=== PATIENT | male | born 1950 | race Caucasian/White ===

== ENCOUNTER 2016-12-25 05:43 | Inpatient (IN) | payer OTHER, MEDICAID, MEDICARE ==
[~2016-12-25] VITALS: Ht 180.3 cm; Wt 105.7 kg
[~2016-12-25 05:43] MED LIST: AMLO5 PO; ARIP1TAB13 PO; CLON.5 PO; PANT20 PO; SERT50 PO; TRAZ50TA78 PO
[2016-12-25 05:47] VITALS: BP 131/93; PULSE 110; RESP 15; TEMP 98.7; O2SAT 95
[2016-12-25] MEDS ORDERED: SERT25TA83 PO ×2 (06:27→11:16)
[2016-12-25] MEDS ORDERED: CLON0.5T PO (06:27)
[2016-12-25] MEDS ORDERED: ABIL15TA2 PO (06:27)
[2016-12-25 06:28] LABS: AUTOMATED NEUTROPHIL # 9.4 TH/MM3 (1.8-7.7); BASOPHIL # 0.1 TH/MM3 (0-0.2); BASOPHIL % 0.9 % (0.0-2.0); EOSINOPHIL # 0.1 TH/MM3 (0-0.4); EOSINOPHIL % 1.2 % (0.0-4.0); HEMATOCRIT 46.5 % (39.0-51.0); HEMO FLAGS DIFF FINAL; LYMPH % 11.7 % (9.0-44.0); LYMPHOCYTE # 1.4 TH/MM3 (1.0-4.8); MEAN CELL VOLUME 85.9 FL (80.0-100.0); MEAN CORPUSCULAR HEMOGLOBIN 29.5 PG (27.0-34.0); MEAN CORPUSCULAR HGB CONC 34.3 % (32.0-36.0); MONO % 6.9 % (0.0-8.0); NEUT % 79.3 % (16.0-70.0); PLATELET COUNT 292 TH/MM3 (150-450); RED BLOOD COUNT 5.41 MIL/MM3 (4.50-5.90); WHITE BLOOD COUNT 11.9 TH/MM3 (4.0-11.0)
[2016-12-25 06:45] LABS: BICARBONATE 23.4 MEQ/L (21.0-32.0); POTASSIUM 4.2 MEQ/L (3.5-5.1)
--- NOTE | 2016-12-25 06:45 | PD ---
HPI Chief Complaint: Psychiatric Symptoms Time Seen by Provider: 06:45 Travel History International Travel<30 days: No Contact w/Intl Traveler<30days: No Traveled to known affect area: No History of Present Illness HPI 66-year-old male with history of, depression, hypertension, presents to emergency department today voluntarily for psychiatric evaluation. Patient states that he has been increasingly depressed. He is having thoughts of suicide. He was advised by psychiatry when this happened last year at July happened again to [facility] department. This is why he is here. States that his plan would be to overdose however he does not want to do this. States that he typically does not drink alcohol but has been this week. Denies any acute medical needs at this time. PFSH Past Medical History Bipolar Disorder: Yes Anxiety: Yes Depression: Yes Cancer: No Cardiovascular Problems: Yes (HTN) Diabetes: No Endocrine: No Genitourinary: Yes Headaches: Yes Hepatitis: Yes (HEPATITIS C) Hypertension: Yes Musculoskeletal: No Neurologic: Yes Psychiatric: Yes Reproductive: No Respiratory: No Seizures: No Tetanus Vaccination: Unknown Influenza Vaccination: Yes Past Surgical History Surgical History: No Previous Surgery Other Surgery: No Social History Alcohol Use: Yes (RARE) Tobacco Use: No Substance Use: No Allergies-Medications (Allergen,Severity, Reaction): Coded Allergies: No Known Allergies (Unverified , 12/25/16) Reported Meds & Prescriptions Reported Meds & Active Scripts Active Reported Clonazepam 0.5 Mg Tab 0.5 Mg PO BID Abilify (Aripiprazole) 15 Mg Tab 15 Mg PO DAILY Sertraline (Sertraline HCl) 25 Mg Tab 25 Mg PO BID Review of Systems Except as stated in HPI: all other systems reviewed are Neg Physical Exam Narrative GENERAL: Well-nourished male patient, ambulatory and in no acute distress SKIN: Focused skin assessment warm/dry. HEAD: Atraumatic. Normocephalic. EYES: Pupils equal and round. No scleral icterus. No injection or drainage. ENT: No nasal bleeding or discharge. Mucous membranes pink and moist. NECK: Trachea midline. No JVD. CARDIOVASCULAR: Regular rate and rhythm. No murmur appreciated. RESPIRATORY: No accessory muscle use. Clear to auscultation. Breath sounds equal bilaterally. GASTROINTESTINAL: Abdomen soft, non-tender, nondistended. Hepatic and splenic margins not palpable. MUSCULOSKELETAL: No obvious deformities. No clubbing. No cyanosis. No edema. NEUROLOGICAL: Awake and alert. No obvious cranial nerve deficits. Motor grossly within normal limits. Normal speech. PSYCHIATRIC: Depressed mood Data Data Last Documented VS Vital Signs Date Time Temp Pulse Resp B/P Pulse Ox O2 Delivery O2 Flow Rate FiO2 12/25/16 05:47 98.7 110 15 131/93 95 Room Air Orders Complete Blood Count With Diff (12/25/16 06:08) Basic Metabolic Panel (Bmp) (12/25/16 06:08) Psych Screen (12/25/16 06:08) Drug Screen, Random Urine (12/25/16 06:08) Alcohol (Ethanol) (12/25/16 06:08) Urinalysis - C+S If Indicated (12/25/16 06:08) Labs Laboratory Tests Test 12/25/16 06:15 White Blood Count 11.9 TH/MM3 Red Blood Count 5.41 MIL/MM3 Hemoglobin 16.0 GM/DL Hematocrit 46.5 % Mean Corpuscular Volume 85.9 FL Mean Corpuscular Hemoglobin 29.5 PG Mean Corpuscular Hemoglobin 34.3 % Concent Red Cell Distribution Width 14.0 % Platelet Count 292 TH/MM3 Mean Platelet Volume 7.6 FL Neutrophils (%) (Auto) 79.3 % Lymphocytes (%) (Auto) 11.7 % Monocytes (%) (Auto) 6.9 % Eosinophils (%) (Auto) 1.2 % Basophils (%) (Auto) 0.9 % Neutrophils # (Auto) 9.4 TH/MM3 Lymphocytes # (Auto) 1.4 TH/MM3 Monocytes # (Auto) 0.8 TH/MM3 Eosinophils # (Auto) 0.1 TH/MM3 Basophils # (Auto) 0.1 TH/MM3 CBC Comment DIFF FINAL Differential Comment MDM Medical Decision Making Medical Screen Exam Complete: Yes Emergency Medical Condition: Yes Medical Record Reviewed: Yes Differential Diagnosis Mood disorder versus personality disorder versus adjustment reaction disorder Narrative Course 66-year-old male presents to the emergency department voluntarily for psychiatric evaluation. Patient appears without distress. He is seeking help for his depression. Labs are ordered. 0700 report is given to ISABELA Soni. She will assume care at this time. Condition: Stable Nga Martinez MADHU December 25, 2016 06:45
[2016-12-25] MEDS ORDERED: LORazepam 1 MG TAB PO ONE (07:00)
[2016-12-25 07:07] LABS: BLOOD, URINE MOD (NEG); COMMENT (UR) CULT NOT INDICATED; CULTURE IF INDICATED CULT NOT INDICATED; GLUCOSE,URINE NEG (NEG); GRANULAR CAST, URINE 25 /lpf; HYALINE CAST, URINE 29 /lpf (RARE); KETONE, URINE NEG (NEG); MUCUS URINE FEW /lpf (OCC); NITRITE,URINE NEG (NEG); PH, URINE 5.5 (5.0-8.5); URINE COLOR YELLOW (YELLW/STRAW)
--- NOTE | 2016-12-25 07:14 | PD ---
Physical Exam Date Seen by Provider: December 25, 2016 Time Seen by Provider: 07:14 Narrative I was asked to medically clear this patient for psych screen once labs are back. Please refer to Nicola Martinez's note for full details of ER visit. Data Data Last Documented VS Vital Signs Date Time Temp Pulse Resp B/P Pulse Ox O2 Delivery O2 Flow Rate FiO2 12/25/16 05:47 98.7 110 15 131/93 95 Room Air Orders Complete Blood Count With Diff (12/25/16 06:08) Basic Metabolic Panel (Bmp) (12/25/16 06:08) Psych Screen (12/25/16 06:08) Drug Screen, Random Urine (12/25/16 06:08) Alcohol (Ethanol) (12/25/16 06:08) Urinalysis - C+S If Indicated (12/25/16 06:08) Lorazepam (Ativan) (12/25/16 07:00) Diet Heart Healthy (12/25/16 Breakfast) Labs Laboratory Tests Test 12/25/16 06:15 White Blood Count 11.9 TH/MM3 Red Blood Count 5.41 MIL/MM3 Hemoglobin 16.0 GM/DL Hematocrit 46.5 % Mean Corpuscular Volume 85.9 FL Mean Corpuscular Hemoglobin 29.5 PG Mean Corpuscular Hemoglobin 34.3 % Concent Red Cell Distribution Width 14.0 % Platelet Count 292 TH/MM3 Mean Platelet Volume 7.6 FL Neutrophils (%) (Auto) 79.3 % Lymphocytes (%) (Auto) 11.7 % Monocytes (%) (Auto) 6.9 % Eosinophils (%) (Auto) 1.2 % Basophils (%) (Auto) 0.9 % Neutrophils # (Auto) 9.4 TH/MM3 Lymphocytes # (Auto) 1.4 TH/MM3 Monocytes # (Auto) 0.8 TH/MM3 Eosinophils # (Auto) 0.1 TH/MM3 Basophils # (Auto) 0.1 TH/MM3 CBC Comment DIFF FINAL Differential Comment Urine Color YELLOW Urine Turbidity CLEAR Urine pH 5.5 Urine Specific [place] 1.015 Urine Protein TRACE mg/dL Urine Glucose (UA) NEG mg/dL Urine Ketones NEG mg/dL Urine Occult Blood MOD Urine Nitrite NEG Urine Bilirubin NEG Urine Urobilinogen LESS THAN 2.0 MG/DL Urine Leukocyte Esterase NEG Urine RBC 10 /hpf Urine WBC 1 /hpf Urine Hyaline Casts 29 /lpf Urine Granular Casts 25 /lpf Urine Mucus FEW /lpf Microscopic Urinalysis Comment CULT NOT INDICATED Sodium Level 140 MEQ/L Potassium Level 4.2 MEQ/L Chloride Level 105 MEQ/L Carbon Dioxide Level 23.4 MEQ/L Anion Gap 12 MEQ/L Blood Urea Nitrogen 13 MG/DL Creatinine 1.01 MG/DL Estimat Glomerular Filtration 74 ML/MIN Rate Random Glucose 107 MG/DL Calcium Level 9.5 MG/DL Urine Opiates Screen NEG Urine Barbiturates Screen NEG Urine Amphetamines Screen NEG Urine Benzodiazepines Screen NEG Urine Cocaine Screen NEG Urine Cannabinoids Screen POS Ethyl Alcohol Level 10 MG/DL MDM Medical Record Reviewed: Yes Supervised Visit with DESHAWN: No Differential Diagnosis suicidal ideation, depression, anxiety Narrative Course I reviewed the labs. Patient's WBC is elevated. He has no source of infection. UA appreciated and has blood present. He denies any fever, chills, or cold like symptoms. I examined the patient: GENERAL: AAO x 3, no acute distress, Well-nourished, well-developed patient. Quite anxious in exam room SKIN: Warm and dry. No visible rashes or bruising. HEAD: Normocephalic and atraumatic. EYES: No scleral icterus. No injection or drainage. ENT: No nasal drainage noted. . Airway patent. NECK: Supple, trachea midline. No JVD. CARDIOVASCULAR: Regular rate and rhythm without murmurs, gallops, or rubs. HR on exam 98 RESPIRATORY: Breath sounds equal bilaterally. No accessory muscle use. No rhonchi or rales. no wheezing. GASTROINTESTINAL: Visual inspection normal EXTREMITIES: No cyanosis or edema. BACK: Nontender without obvious deformity. No CVA tenderness. PSYCH: AAO x 3, very anxious He is medically cleared for psych screen. He has been advised to f/u with his PCP. Diagnosis Primary Impression: Suicidal ideation Condition: Stable Alexus Sadler December 25, 2016 07:14
[2016-12-25 07:24] LABS: AMPHETAMINE, URINE NEG (NEG); BARBITURATES, URINE NEG (NEG); COCAINE, URINE NEG (NEG)
[2016-12-25] MEDS ORDERED: ACETAMINOPHEN 500 MG CPLT PO ONE (09:45)
[2016-12-25 09:57] VITALS: BP 142/80; PULSE 113; RESP 22; TEMP 98.1; O2SAT 93
[2016-12-25] MEDS ORDERED: ABIL5TAB6 PO (11:16)
[2016-12-25] MEDS ORDERED: AMLO5 PO (11:45)
[2016-12-25 13:09] VITALS: BP 178/100; PULSE 100; RESP 18; TEMP 98.3; O2SAT 95
[2016-12-25] MEDS ORDERED: diphenhydrAMINE HCL 50 MG/ML VIAL - HS PRN IM (13:15)
[2016-12-25] MEDS ORDERED: ALUMINUM/MAGNESIUM/SIMETH 30 ML CUP PO PRN (13:15)
[2016-12-25] MEDS ORDERED: MAGNESIUM HYDROXIDE SUSP 30 ML CUP PO PRN (13:15)
[2016-12-25] MEDS ORDERED: PILL SPLITTER OTHER PRN (14:00)
[2016-12-25] MEDS: ARIPiprazole 5 MG TAB PO SCH (14:10)
[2016-12-25] MEDS: SERTRALINE HCL 50 MG TAB PO SCH (14:10)
[2016-12-25] MEDS: amLODIPine BESYLATE 5 MG TAB PO SCH (14:10)
[2016-12-25] MEDS: clonazePAM 0.5 MG TAB PO SCH ×2 (14:10→21:12)
[2016-12-25] MEDS ORDERED: cloNIDine HCL 0.1 MG TAB PO PRN (15:00)
--- NOTE | 2016-12-25 15:22 | PD.CONS ---
HPI Service [facility] Hospitalists Consult Requested By Dr. Sullivan Reason for Consult HTN Primary Care Physician Randolph López Diagnoses: History of Present Illness The patient is a 66-year-old male with past medical history of depression and hypertension who is presenting to the hospital voluntarily for depression. The patient says over the past few days he has been very depressed and he believes the biggest trigger is his financial situation. He says he currently lives at a boarding house and it is not the best place to live. He says over the past few days he has been drinking up to 15 beers daily. He says he doesn't drink typically but when he is depressed he will start binging. He says last January he overdosed by taking a significant amount of Ativan and amlodipine pills. He said that he was told if he felt that way again he should come to the emergency department. His plan this time was to take a lot of pills and he decided he didn't want to do that again so he called for an ambulance. He says he believes he will get an inheritance in the next few months and he said his financial situation will be much better once that happens. He wants to get better from his depression. He denies any recent medical ailments. He says he gets constipated every once in a while. He says he takes his blood pressure pills regularly. Review of Systems Except as stated in HPI: all other systems reviewed are Neg Past Family Social History Allergies: Coded Allergies: No Known Allergies (Unverified , 12/25/16) Past Medical History Depression Hypertension GERD Active Ordered Medications Current Medications Medications (Trade) Dose Ordered Sig/Brando Route Start Time Stop Time Status Last Admin (Norvasc) 5 mg DAILY PO 12/25/16 14:00 12/25/16 14:10 (Benadryl) 50 mg HS PRN PO 12/25/16 13:15 (Benadryl Inj) 50 mg HS PRN IM 12/25/16 13:15 (Tylenol) 650 mg Q4H PRN PO 12/25/16 13:15 (Milk Of Magnesia Liq) 30 ml DAILY PRN PO 12/25/16 13:15 (Mag-Al Plus Susp Liq) 30 ml Q6H PRN PO 12/25/16 13:15 (KlonoPIN) 0.5 mg BID PO 12/25/16 14:00 12/25/16 14:10 (Zoloft) 25 mg DAILY PO 12/25/16 14:00 12/25/16 14:10 (Abilify) 5 mg DAILY PO 12/25/16 14:00 12/25/16 14:10 (Pill Splitter) 1 ea UNSCH PRN OTHER 12/25/16 14:00 (Catapres) 0.1 mg Q6H PRN PO 12/25/16 15:00 Family History Brain and throat cancer Social History He does not smoke. He drinks when he's depressed, up to 15 beers daily, but not otherwise. Marijuana use a few times per month. Physical Exam Vital Signs Vital Signs Date Time Temp Pulse Resp B/P Pulse Ox O2 Delivery O2 Flow Rate FiO2 12/25/16 13:09 98.3 100 18 178/100 95 12/25/16 09:57 98.1 113 22 142/80 93 Room Air 12/25/16 05:47 98.7 110 15 131/93 95 Room Air Physical Exam GENERAL: This is a well-nourished, well-developed patient, in no apparent distress. SKIN: No rashes, ecchymoses or lesions. Cool and dry. HEAD: Atraumatic. Normocephalic. No temporal or scalp tenderness. EYES: Pupils equal round and reactive. Extraocular motions intact. No scleral icterus. No injection or drainage. ENT: Nose without bleeding, purulent drainage or septal hematoma. Throat without erythema, tonsillar hypertrophy or exudate. Uvula midline. Airway patent. NECK: Trachea midline. No JVD or lymphadenopathy. Supple, nontender, no meningeal signs. CARDIOVASCULAR: Regular rate and rhythm without murmurs, gallops, or rubs. RESPIRATORY: Clear to auscultation. Breath sounds equal bilaterally. No wheezes , rales, or rhonchi. GASTROINTESTINAL: Abdomen soft, non-tender, nondistended. No hepato-splenomegaly , or palpable masses. No guarding. MUSCULOSKELETAL: Extremities without clubbing, cyanosis, or edema. No joint tenderness, effusion, or edema noted. NEUROLOGICAL: Awake and alert. Cranial nerves II through XII intact. Motor and sensory grossly within normal limits. Five out of 5 muscle strength in all muscle groups. Normal speech. PSYCH: Mood and affect appropriate. Laboratory Laboratory Tests Test 12/25/16 06:15 White Blood Count 11.9 Red Blood Count 5.41 Hemoglobin 16.0 Hematocrit 46.5 Mean Corpuscular Volume 85.9 Mean Corpuscular Hemoglobin 29.5 Mean Corpuscular Hemoglobin 34.3 Concent Red Cell Distribution Width 14.0 Platelet Count 292 Mean Platelet Volume 7.6 Neutrophils (%) (Auto) 79.3 Lymphocytes (%) (Auto) 11.7 Monocytes (%) (Auto) 6.9 Eosinophils (%) (Auto) 1.2 Basophils (%) (Auto) 0.9 Neutrophils # (Auto) 9.4 Lymphocytes # (Auto) 1.4 Monocytes # (Auto) 0.8 Eosinophils # (Auto) 0.1 Basophils # (Auto) 0.1 CBC Comment DIFF FINAL Differential Comment Urine Color YELLOW Urine Turbidity CLEAR Urine pH 5.5 Urine Specific [place] 1.015 Urine Protein TRACE Urine Glucose (UA) NEG Urine Ketones NEG Urine Occult Blood MOD Urine Nitrite NEG Urine Bilirubin NEG Urine Urobilinogen LESS THAN 2.0 Urine Leukocyte Esterase NEG Urine RBC 10 Urine WBC 1 Urine Hyaline Casts 29 Urine Granular Casts 25 Urine Mucus FEW Microscopic Urinalysis Comment CULT NOT INDICATED Sodium Level 140 Potassium Level 4.2 Chloride Level 105 Carbon Dioxide Level 23.4 Anion Gap 12 Blood Urea Nitrogen 13 Creatinine 1.01 Estimat Glomerular Filtration 74 Rate Random Glucose 107 Calcium Level 9.5 Urine Opiates Screen NEG Urine Barbiturates Screen NEG Urine Amphetamines Screen NEG Urine Benzodiazepines Screen NEG Urine Cocaine Screen NEG Urine Cannabinoids Screen POS Ethyl Alcohol Level 10 Result Diagram: 12/25/1615 12/25/1615 Assessment and Plan Assessment and Plan Depression The patient had an episode of depression where he overdosed on pills last year. He voluntarily came to the hospital to prevent himself from doing that again this time. - Care per psychiatry. HTN The patient has a history of hypertension and is on amlodipine as an outpatient. Hypertension may be exacerbated by alcohol abuse/withdrawal. - Continue amlodipine. Increase if needed. - Clonidine as needed. Leukocytosis The patient is afebrile. He has no symptoms. UA unremarkable. Likely a stress response. - Follow CBC. Alcohol abuse The patient binges on alcohol when depressed. Alcohol level was 10 on presentation. - Seizure precautions. - Supportive care. - Cessation instructions. PPx: Ambulation. Discussed Condition With Patient. Juancho Osman DO December 25, 2016 15:22
[2016-12-25] MEDS: ACETAMINOPHEN 325 MG TAB PO PRN (17:47)
[2016-12-25 17:53] VITALS: BP 144/107; PULSE 100; RESP 18; TEMP 98.3; O2SAT 95
[2016-12-26 05:04] VITALS: BP 121/64; PULSE 88; RESP 18; TEMP 98; O2SAT 97
[2016-12-26] MEDS: SERTRALINE HCL 50 MG TAB PO SCH (08:11)
[2016-12-26] MEDS: amLODIPine BESYLATE 5 MG TAB PO SCH (08:11)
[2016-12-26] MEDS: clonazePAM 0.5 MG TAB PO SCH ×2 (08:11→21:25)
[2016-12-26] MEDS: ARIPiprazole 5 MG TAB PO SCH (08:11)
[2016-12-26] MEDS: ACETAMINOPHEN 325 MG TAB PO PRN (08:27)
[2016-12-26 10:13] LABS: AUTOMATED NEUTROPHIL # 7.9 TH/MM3 (1.8-7.7); BASOPHIL # 0.1 TH/MM3 (0-0.2); BASOPHIL % 1.1 % (0.0-2.0); EOSINOPHIL # 0.1 TH/MM3 (0-0.4); EOSINOPHIL % 1.1 % (0.0-4.0); HEMATOCRIT 47.1 % (39.0-51.0); HEMO FLAGS DIFF FINAL; LYMPH % 15.1 % (9.0-44.0); LYMPHOCYTE # 1.6 TH/MM3 (1.0-4.8); MEAN CELL VOLUME 87.5 FL (80.0-100.0); MEAN CORPUSCULAR HEMOGLOBIN 29.7 PG (27.0-34.0); MONO % 8.4 % (0.0-8.0); NEUT % 74.3 % (16.0-70.0); PLATELET COUNT 332 TH/MM3 (150-450); RED BLOOD COUNT 5.38 MIL/MM3 (4.50-5.90); RED CELL DISTRIBUTION WIDTH 14.2 % (11.6-17.2); WHITE BLOOD COUNT 10.7 TH/MM3 (4.0-11.0)
[2016-12-26 10:41] LABS: ANION GAP 10 MEQ/L (5-15); BICARBONATE 29.3 MEQ/L (21.0-32.0); BLOOD UREA NITROGEN 23 MG/DL (7-18); CHLORIDE 102 MEQ/L (98-107); GLOMERULAR FILTRATION RATE 56 ML/MIN (>89); HDL CHOLESTEROL 57.4 MG/DL (40.0-60.0); LDL CHOLESTEROL 95 MG/DL (0-99); SODIUM (NA) 141 MEQ/L (136-145)
[2016-12-26 11:14] LABS: HEMOGLOBIN A1a 0.5 %; HEMOGLOBIN A1b 1.3 %; HEMOGLOBIN Ao 86.3 %; HEMOGLOBIN LA1C 2.1 %; HEMOGLOBIN P3 3.8 %
[2016-12-26] MEDS ORDERED: hydrOXYzine HCL 50 MG TAB PO PRN (12:15)
[2016-12-26] MEDS ORDERED: clonazePAM 0.5 MG TAB PO SCH (12:15)
[2016-12-26] MEDS ORDERED: MAGNESIUM HYDROXIDE SUSP 30 ML CUP PO PRN (12:15)
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
[2016-12-26] MEDS ORDERED: amLODIPine BESYLATE 5 MG TAB PO SCH (13:00)
[2016-12-26] MEDS: QUEtiapine FUMARATE 25 MG TAB PO SCH (15:11)
[2016-12-26] MEDS: ALUMINUM/MAGNESIUM/SIMETH 30 ML CUP PO PRN (15:11)
[2016-12-26 15:38] VITALS: BP 157/81; PULSE 82; RESP 18; TEMP 97.5; O2SAT 98
[2016-12-26 20:00] VITALS: BP 157/81; PULSE 82; RESP 18; TEMP 97.5; O2SAT 98
[2016-12-26] MEDS: QUEtiapine FUMARATE 100 MG TAB PO SCH (21:25)
[2016-12-27 06:00] VITALS: BP 118/56; PULSE 83; RESP 18; TEMP 98; O2SAT 95
[2016-12-27] MEDS: NICOTINE 21 MG/24 HR PATCH T-DERMAL SCH (09:00)
[2016-12-27] MEDS: clonazePAM 0.5 MG TAB PO SCH (09:05)
[2016-12-27] MEDS: amLODIPine BESYLATE 5 MG TAB PO SCH (09:05)
[2016-12-27] MEDS: QUEtiapine FUMARATE 25 MG TAB PO SCH ×2 (09:05→15:46)
[2016-12-27] MEDS: ACETAMINOPHEN 325 MG TAB PO PRN (11:27)
--- NOTE | 2016-12-27 15:19 | HHI.PYPN ---
Subjective Remarks Patient seen in [place] with counselor [place]. Patient continues somewhat anxious nervous while denying suicidality feels the situation is hopeless right now is acknowledged his need for Klonopin. But he states he has been on it chronically without misuse. He also states that he would find a physician in the community to adjust the dose of Klonopin. Discussed I feel the patient is Terese in his need he does seem to be sincere meds and I feel he is manipulating to get more and more however I will increase the dose of Klonopin to 1 mg twice a day for now continue treatment Review of Systems Except as stated in HPI: all other systems reviewed are Neg Objective Alert: Yes [place]: Person, Place, Date Mood: Anxious, Depressed Affect: Restricted Memory Intact: Comment Hallucinations: Other (fair) Delusions: No ( denies) Delusion Type: Other (somewhat vigilant) Suicidal: Ideation (vague) Homicidal: Ideation (denies) Insight/Judgment Poor Vitals/IOs Vital Signs Date Time Temp Pulse Resp B/P Pulse Ox O2 Delivery O2 Flow Rate FiO2 12/27/16 06:00 98.0 83 18 118/56 95 12/25/16 09:57 Room Air Assessment & Plan Problem List: (1) Bipolar disorder current episode depressed ICD Code: F31.30 Assessment & Plan Estimated LOS: days patient continues somewhat depressed anxious and 92 medication adjustment above Justification for Cont. Inpt. At this time patient decompensate if placed in a lower level of care Discharge Planning To be determined Request HC Surrog/Guard Advoc?: No Arias Sullivan MD December 27, 2016 15:19
[2016-12-27 18:00] VITALS: BP 110/76; PULSE 88; RESP 18; TEMP 98.2; O2SAT 97
[2016-12-27] MEDS: clonazePAM 1 MG TAB PO SCH (21:27)
[2016-12-27] MEDS: QUEtiapine FUMARATE 100 MG TAB PO SCH (21:27)
[2016-12-28 05:40] VITALS: BP 122/60; PULSE 78; RESP 20; TEMP 98.3; O2SAT 96
[2016-12-28] MEDS: QUEtiapine FUMARATE 25 MG TAB PO SCH ×2 (08:43→16:00)
[2016-12-28] MEDS: clonazePAM 1 MG TAB PO SCH ×2 (08:43→21:00)
[2016-12-28] MEDS: amLODIPine BESYLATE 5 MG TAB PO SCH (08:43)
[2016-12-28] MEDS: NICOTINE 21 MG/24 HR PATCH T-DERMAL SCH (08:44)
--- NOTE | 2016-12-28 15:28 | HHI.PYPN ---
Subjective Remarks Patient was seen for psychiatric reevaluation today, he was found his bed, he seems to be distant, fragile, melancholy, he endorses depressed mood, but at the same time he says that he has been doing much better than yesterday. He reports better sleep, better appetite, but decreased level of energy. He has been isolated. Denies suicidal or homicidal ideation, denies visual and auditory hallucinations. Patient is oriented 3, no attention deficit, compliant with medications.. Review of Systems Other No somatic complaints Objective Alert: Yes [place]: Person, Place, Date Mood: Depressed Affect: Restricted Memory Intact: Comment Hallucinations: Other (fair) Delusions: No ( denies) Delusion Type: Other (somewhat vigilant) Suicidal: Ideation (vague) Homicidal: Ideation (denies) Insight/Judgment Improved Vitals/IOs Vital Signs Date Time Temp Pulse Resp B/P Pulse Ox O2 Delivery O2 Flow Rate FiO2 12/28/16 05:40 98.3 78 20 122/60 96 12/25/16 09:57 Room Air Assessment & Plan Problem List: (1) Bipolar disorder current episode depressed Assessment & Plan: Continue current psychotropics ICD Code: F31.30 Assessment & Plan Estimated LOS: days Justification for Cont. Inpt. Patient is to continue psychiatric hospitalization for stabilization Request HC Surrog/Guard Advoc?: No Awais Paz MD December 28, 2016 15:28
[2016-12-28 18:12] VITALS: BP 134/60; PULSE 76; RESP 18; TEMP 99; O2SAT 99
[2016-12-28] MEDS: QUEtiapine FUMARATE 100 MG TAB PO SCH (21:00)
[2016-12-29 06:25] VITALS: BP 97/77; PULSE 77; RESP 16; TEMP 98.1; O2SAT 96
[2016-12-29] MEDS: amLODIPine BESYLATE 5 MG TAB PO SCH (08:26)
[2016-12-29] MEDS: QUEtiapine FUMARATE 25 MG TAB PO SCH (08:26)
[2016-12-29] MEDS: clonazePAM 1 MG TAB PO SCH ×2 (08:26→21:22)
[2016-12-29] MEDS: NICOTINE 21 MG/24 HR PATCH T-DERMAL SCH (08:27)
[2016-12-29] MEDS: ACETAMINOPHEN 325 MG TAB PO PRN (10:41)
--- NOTE | 2016-12-29 12:32 | HHI.PYPN ---
Subjective Remarks Patient was seen today for psychiatric evaluation, he was found in the recreational area of the unit, he seems to have a brighter affect today, he reports that he feels slightly better, with better energy, less depressed. When he came to the unit he says his depression was 0/10 today is 4/10. He has suicidal thoughts, but no suicidal intention, no plan. He is oriented 3, no fluctuation of consciousness. Compliant with his medication, no agitation, no aggressive behavior Review of Systems Other No somatic complaints Objective Alert: Yes [place]: Person, Place, Date Mood: Depressed Affect: Restricted Memory Intact: Comment Hallucinations: Other (fair) Delusions: No ( denies) Delusion Type: Other (somewhat vigilant) Suicidal: Ideation (vague) Homicidal: Ideation (denies) Insight/Judgment Fair Vitals/IOs Vital Signs Date Time Temp Pulse Resp B/P Pulse Ox O2 Delivery O2 Flow Rate FiO2 12/29/16 06:25 98.1 77 16 97/77 96 12/25/16 09:57 Room Air Intake and Output 12/28/16 12/28/16 12/29/16 08:00 16:00 00:00 Intake Total 240 ml Balance 240 ml Assessment & Plan Problem List: (1) Bipolar disorder current episode depressed Assessment & Plan: We will increase Seroquel to 50 mg in the morning and 100 mg at bedtime to help with bipolar depression. Brief supportive psychotherapy provided. ICD Code: F31.30 Assessment & Plan Estimated LOS: days Justification for Cont. Inpt. Patient needs to continue psychiatric hospitalization for stabilization, has a high possibility of decompensate at a lower level of care. Request HC Surrog/Guard Advoc?: No Awais Paz MD December 29, 2016 12:31
[2016-12-29 17:12] VITALS: BP 111/64; PULSE 80; RESP 16; TEMP 97.7; O2SAT 98
[2016-12-29] MEDS: ALUMINUM/MAGNESIUM/SIMETH 30 ML CUP PO PRN (19:39)
[2016-12-29] MEDS: QUEtiapine FUMARATE 100 MG TAB PO SCH (21:22)
[2016-12-30 06:06] VITALS: BP 119/63; PULSE 74; RESP 16; TEMP 98.1; O2SAT 98
[2016-12-30] MEDS: NICOTINE 21 MG/24 HR PATCH T-DERMAL SCH (09:00)
[2016-12-30] MEDS: QUEtiapine FUMARATE 25 MG TAB PO SCH (09:18)
[2016-12-30] MEDS: amLODIPine BESYLATE 5 MG TAB PO SCH (09:18)
[2016-12-30] MEDS: clonazePAM 1 MG TAB PO SCH (09:18)
[2016-12-30] MEDS: ACETAMINOPHEN 325 MG TAB PO PRN ×2 (09:19→20:58)
--- NOTE | 2016-12-30 14:12 | HHI.PYPN ---
Subjective Remarks Patient seen in his room with nurse Deanna. Patient showing increased affect moved calmer is somewhat excited about the possibility of getting an [facility] placement. He feels his dose of Klonopin is satisfactory though he would like to split the afternoon dose and to point 5 in the afternoon of 0.5 at bedtime. I'm willing to do that. Also complained of some gastric reflux will offer him Protonix 40 mg daily Review of Systems Except as stated in HPI: all other systems reviewed are Neg Objective Alert: Yes [place]: Person, Place, Date Mood: Depressed Affect: Restricted Memory Intact: Comment Hallucinations: Other (fair) Delusions: No ( denies) Delusion Type: Other (somewhat vigilant) Suicidal: Ideation (vague) Homicidal: Ideation (denies) Insight/Judgment Poor Vitals/IOs Vital Signs Date Time Temp Pulse Resp B/P Pulse Ox O2 Delivery O2 Flow Rate FiO2 12/30/16 06:06 98.1 74 16 119/63 98 Assessment & Plan Problem List: (1) Bipolar disorder current episode depressed ICD Code: F31.30 Assessment & Plan Estimated LOS: days patient somewhat calmer mood is improved anxiety is decreased. She medication adjustments above continue to work with counselor and placement Justification for Cont. Inpt. At this time patient will decompensate if placed in a lower level of care Discharge Planning To be determined Request HC Surrog/Guard Advoc?: No Arias Sullivan MD December 30, 2016 14:12
[2016-12-30] MEDS: PANTOPRAZOLE SOD 40 MG DELAYED RELEASE TAB PO SCH (14:36)
[2016-12-30 18:00] VITALS: BP 102/72; PULSE 99; RESP 16; TEMP 98.1; O2SAT 97
[2016-12-30] MEDS: QUEtiapine FUMARATE 100 MG TAB PO SCH (20:58)
[2016-12-30] MEDS: clonazePAM 0.5 MG TAB PO SCH (20:59)
[2016-12-31 05:11] VITALS: BP 110/76; PULSE 77; RESP 18; TEMP 97.5; O2SAT 97
[2016-12-31] MEDS: NICOTINE 21 MG/24 HR PATCH T-DERMAL SCH (09:00)
[2016-12-31] MEDS: clonazePAM 1 MG TAB PO SCH (09:13)
[2016-12-31] MEDS: PANTOPRAZOLE SOD 40 MG DELAYED RELEASE TAB PO SCH (09:13)
[2016-12-31] MEDS: QUEtiapine FUMARATE 25 MG TAB PO SCH (09:13)
[2016-12-31] MEDS: amLODIPine BESYLATE 5 MG TAB PO SCH (09:13)
[2016-12-31] MEDS: ACETAMINOPHEN 325 MG TAB PO PRN ×2 (12:10→21:17)
--- NOTE | 2016-12-31 13:11 | HHI.PYPN ---
Subjective Remarks Somnolent, tired and remains depressed. Cooperative with staff. Compliant with medications. Review of Systems Except as stated in HPI: all other systems reviewed are Neg Objective Alert: Yes [place]: Person, Place, Date Mood: Depressed Affect: Restricted Memory Intact: Comment Hallucinations: Other (fair) Delusions: No ( denies) Delusion Type: Other (somewhat vigilant) Suicidal: Ideation (vague) Homicidal: Ideation (denies) Insight/Judgment Impaired Vitals/IOs Vital Signs Date Time Temp Pulse Resp B/P Pulse Ox O2 Delivery O2 Flow Rate FiO2 12/31/16 05:11 97.5 77 18 110/76 97 Assessment & Plan Problem List: (1) Bipolar disorder current episode depressed ICD Code: F31.30 Assessment & Plan Estimated LOS: 3 days patient continues to require more time for medications to work. Justification for Cont. Inpt. Likely to decompensate at lower level of care. Request HC Surrog/Guard Advoc?: No Raulito Ferrell MD December 31, 2016 13:11
[2016-12-31] MEDS: clonazePAM 0.5 MG TAB PO SCH ×2 (14:37→21:17)
[2016-12-31 17:58] VITALS: BP 98/76; PULSE 91; RESP 18; TEMP 97.4; O2SAT 97
[2016-12-31] MEDS: QUEtiapine FUMARATE 100 MG TAB PO SCH (20:21)
[2016-12-31] MEDS: diphenhydrAMINE HCL 50 MG CAP - HS PRN PO (20:21)
[2017-01-01 04:46] VITALS: BP 121/72; PULSE 91; RESP 16; TEMP 97.8; O2SAT 96
[2017-01-01] MEDS: QUEtiapine FUMARATE 25 MG TAB PO SCH (08:45)
[2017-01-01] MEDS: PANTOPRAZOLE SOD 40 MG DELAYED RELEASE TAB PO SCH (08:45)
[2017-01-01] MEDS: clonazePAM 1 MG TAB PO SCH (08:45)
[2017-01-01] MEDS: amLODIPine BESYLATE 5 MG TAB PO SCH (08:45)
[2017-01-01] MEDS: NICOTINE 21 MG/24 HR PATCH T-DERMAL SCH (08:46)
[2017-01-01] MEDS: ACETAMINOPHEN 325 MG TAB PO PRN ×3 (08:59→20:58)
[2017-01-01] MEDS: clonazePAM 0.5 MG TAB PO SCH ×2 (14:12→20:59)
--- NOTE | 2017-01-01 15:02 | HHI.PYPN ---
Subjective Remarks Patient was seen and case discussed with nursing. Patient is pleasant and cooperative with exam. He has good insight into admission. Says he got good news that he has placement at an [facility] but for some reason is feeling "depressed today." Denies suicidal ideation intent or plan. Sleeping and eating well. Compliant with medications Objective Alert: Yes [place]: Person, Place, Date Mood: Depressed Affect: Blunted Memory Intact: Comment Hallucinations: Other (none) Delusions: No ( denies) Delusion Type: Other (somewhat vigilant) Suicidal: Ideation (vague) Homicidal: Ideation (denies) Insight/Judgment Poor Vitals/IOs Vital Signs Date Time Temp Pulse Resp B/P Pulse Ox O2 Delivery O2 Flow Rate FiO2 01/01/17 04:46 97.8 91 16 121/72 96 Assessment & Plan Problem List: (1) Bipolar disorder current episode depressed ICD Code: F31.30 Assessment & Plan Continue current treatment plan Justification for Cont. Inpt. Patient will decompensate in a less restrictive setting Request HC Surrog/Guard Advoc?: No Ten Khan DO January 01, 2017 15:02
[2017-01-01 16:35] VITALS: BP 111/73; PULSE 72; RESP 18; TEMP 97.2; O2SAT 100
[2017-01-01] MEDS: QUEtiapine FUMARATE 100 MG TAB PO SCH (20:58)
[2017-01-01] MEDS: diphenhydrAMINE HCL 50 MG CAP - HS PRN PO (20:58)
[2017-01-02 05:52] VITALS: BP 97/66; PULSE 69; RESP 18; TEMP 97.8; O2SAT 97
[2017-01-02] MEDS: QUEtiapine FUMARATE 25 MG TAB PO SCH (08:34)
[2017-01-02] MEDS: amLODIPine BESYLATE 5 MG TAB PO SCH (08:34)
[2017-01-02] MEDS: clonazePAM 1 MG TAB PO SCH (08:34)
[2017-01-02] MEDS: PANTOPRAZOLE SOD 40 MG DELAYED RELEASE TAB PO SCH (08:34)
[2017-01-02] MEDS: ACETAMINOPHEN 325 MG TAB PO PRN ×3 (08:37→21:31)
[2017-01-02] MEDS: NICOTINE 21 MG/24 HR PATCH T-DERMAL SCH (09:00)
[2017-01-02] MEDS: clonazePAM 0.5 MG TAB PO SCH ×2 (14:46→20:51)
--- NOTE | 2017-01-02 14:56 | HHI.PYPN ---
Subjective Remarks Patient was seen and case discussed with nursing. Patient notes an improvement in mood. Says "not depressed anymore." Sleeping and eating well. Compliant with his medications. Behaving well on the unit. Denies auditory visual hallucinations. Objective Alert: Yes [place]: Person, Place, Date Mood: Calm Affect: Restricted Memory Intact: Comment Hallucinations: Other (none) Delusions: No ( denies) Delusion Type: Other (somewhat vigilant) Suicidal: Ideation (denies) Homicidal: Ideation (denies) Insight/Judgment Poor Vitals/IOs Vital Signs Date Time Temp Pulse Resp B/P Pulse Ox O2 Delivery O2 Flow Rate FiO2 01/02/17 10:21 16 01/02/17 05:52 97.8 69 97/66 97 Assessment & Plan Problem List: (1) Bipolar disorder current episode depressed ICD Code: F31.30 Assessment & Plan Continue current treatment plan Justification for Cont. Inpt. Patient will decompensate in a less restrictive setting Request HC Surrog/Guard Advoc?: No Ten Khan DO January 02, 2017 14:56
[2017-01-02 20:26] VITALS: BP 134/70; PULSE 74; RESP 18; TEMP 96.2; O2SAT 100
[2017-01-02] MEDS: diphenhydrAMINE HCL 50 MG CAP - HS PRN PO (20:51)
[2017-01-02] MEDS: QUEtiapine FUMARATE 100 MG TAB PO SCH (20:51)
[2017-01-03 05:32] VITALS: BP 124/89; PULSE 80; RESP 18; TEMP 97.1; O2SAT 97
[2017-01-03] MEDS: PANTOPRAZOLE SOD 40 MG DELAYED RELEASE TAB PO SCH (08:40)
[2017-01-03] MEDS: QUEtiapine FUMARATE 25 MG TAB PO SCH (08:40)
[2017-01-03] MEDS: ACETAMINOPHEN 325 MG TAB PO PRN (08:40)
[2017-01-03] MEDS: clonazePAM 1 MG TAB PO SCH (08:41)
[2017-01-03] MEDS: amLODIPine BESYLATE 5 MG TAB PO SCH (08:41)
[2017-01-03] MEDS: NICOTINE 21 MG/24 HR PATCH T-DERMAL SCH (09:00)
--- NOTE | 2017-01-03 13:48 | HHI.PYPN ---
Subjective Remarks Patient reporting a history of cluster migraine headaches and is requesting Imitrex. The headaches make his depression worse and he is unable to converse with this physician for long. Medication was ordered. Patient continues to describe depressed mood. Review of Systems ROS Limitations: Poor Historian Objective Alert: Yes [place]: Person, Place, Date Mood: Calm Affect: Restricted Memory Intact: Comment Hallucinations: Other (none) Delusions: No ( denies) Delusion Type: Other (somewhat vigilant) Suicidal: Ideation (denies) Homicidal: Ideation (denies) Insight/Judgment Impaired Vitals/IOs Vital Signs Date Time Temp Pulse Resp B/P Pulse Ox O2 Delivery O2 Flow Rate FiO2 01/03/17 09:40 16 01/03/17 05:32 97.1 80 124/89 97 Assessment & Plan Problem List: (1) Bipolar disorder current episode depressed ICD Code: F31.30 Assessment & Plan Estimated LOS: 2 days patient continues to require more time to stabilize on current medicines. Justification for Cont. Inpt. Likely to decompensate at lower level of care. Request HC Surrog/Guard Advoc?: No Raulito Ferrell MD January 03, 2017 13:48
[2017-01-03] MEDS: clonazePAM 0.5 MG TAB PO SCH ×2 (14:17→21:38)
[2017-01-03] MEDS: diphenhydrAMINE HCL 50 MG CAP - HS PRN PO (21:18)
[2017-01-03] MEDS: QUEtiapine FUMARATE 100 MG TAB PO SCH (21:18)
[2017-01-03 21:39] VITALS: BP 129/77; PULSE 72; RESP 18; TEMP 97.5; O2SAT 99
[2017-01-03] MEDS: SUMAtriptan SUCCINATE 50 MG TAB PO PRN (22:00)
[2017-01-04 05:34] VITALS: BP 104/55; PULSE 70; RESP 18; TEMP 97.1; O2SAT 98
[2017-01-04] MEDS: NICOTINE 21 MG/24 HR PATCH T-DERMAL SCH (09:00)
[2017-01-04] MEDS: PANTOPRAZOLE SOD 40 MG DELAYED RELEASE TAB PO SCH (09:12)
[2017-01-04] MEDS: amLODIPine BESYLATE 5 MG TAB PO SCH (09:12)
[2017-01-04] MEDS: clonazePAM 1 MG TAB PO SCH (09:12)
[2017-01-04] MEDS: QUEtiapine FUMARATE 25 MG TAB PO SCH (09:12)
[2017-01-04] MEDS: clonazePAM 0.5 MG TAB PO SCH ×2 (14:21→22:06)
--- NOTE | 2017-01-04 15:25 | HHI.PYPN ---
Subjective Remarks Continues to report depression. Review of Systems Except as stated in HPI: all other systems reviewed are Neg Objective Alert: Yes [place]: Person, Place, Date Mood: Calm Affect: Restricted Memory Intact: Comment Hallucinations: Other (none) Delusions: No ( denies) Delusion Type: Other (somewhat vigilant) Suicidal: Ideation (denies) Homicidal: Ideation (denies) Insight/Judgment Mildly impaired. Vitals/IOs Vital Signs Date Time Temp Pulse Resp B/P Pulse Ox O2 Delivery O2 Flow Rate FiO2 01/04/17 05:34 97.1 70 18 104/55 98 Assessment & Plan Problem List: (1) Bipolar disorder current episode depressed ICD Code: F31.30 Assessment & Plan Estimated LOS: 1 days plan for discharge. Justification for Cont. Inpt. Disposition planning. Request HC Surrog/Guard Advoc?: No Raulito Ferrell MD January 04, 2017 15:25
[2017-01-04] MEDS: ACETAMINOPHEN 325 MG TAB PO PRN (17:12)
[2017-01-04 17:57] VITALS: BP 113/74; PULSE 84; RESP 16; TEMP 97.9; O2SAT 96
[2017-01-04] MEDS: ALUMINUM/MAGNESIUM/SIMETH 30 ML CUP PO PRN (18:57)
[2017-01-04] MEDS: QUEtiapine FUMARATE 100 MG TAB PO SCH (21:04)
[2017-01-04] MEDS: diphenhydrAMINE HCL 50 MG CAP - HS PRN PO (21:04)
[2017-01-04] MEDS: SUMAtriptan SUCCINATE 50 MG TAB PO PRN (22:05)
[2017-01-05 05:02] VITALS: BP 119/56; PULSE 86; RESP 18; TEMP 98.1; O2SAT 99
[2017-01-05] MEDS: NICOTINE 21 MG/24 HR PATCH T-DERMAL SCH (09:00)
[2017-01-05] MEDS: amLODIPine BESYLATE 5 MG TAB PO SCH (09:39)
[2017-01-05] MEDS: clonazePAM 1 MG TAB PO SCH (09:39)
[2017-01-05] MEDS: QUEtiapine FUMARATE 25 MG TAB PO SCH (09:39)
[2017-01-05] MEDS: PANTOPRAZOLE SOD 40 MG DELAYED RELEASE TAB PO SCH (09:39)
[2017-01-05] MEDS: ACETAMINOPHEN 325 MG TAB PO PRN ×2 (09:45→14:50)
--- NOTE | 2017-01-05 12:49 | HHI.PYPN ---
Subjective Remarks Placement is available. Patient needs chest x-ray in order to be placed. He is doing better on medicines. Chest x-ray ordered. Review of Systems Except as stated in HPI: all other systems reviewed are Neg Objective Alert: Yes [place]: Person, Place, Date Mood: Calm Affect: Restricted Memory Intact: Comment Hallucinations: Other (none) Delusions: No ( denies) Delusion Type: Other (somewhat vigilant) Suicidal: Ideation (denies) Homicidal: Ideation (denies) Insight/Judgment Improved Vitals/IOs Vital Signs Date Time Temp Pulse Resp B/P Pulse Ox O2 Delivery O2 Flow Rate FiO2 01/05/17 05:02 98.1 86 18 119/56 99 Intake and Output 01/04/17 01/04/17 01/05/17 08:00 16:00 00:00 Intake Total 360 ml Balance 360 ml Assessment & Plan Problem List: (1) Bipolar disorder current episode depressed ICD Code: F31.30 Assessment & Plan Estimated LOS: 1 days anticipate discharge tomorrow. Justification for Cont. Inpt. Needs chest x-ray. Request HC Surrog/Guard Advoc?: No Raulito Ferrell MD January 05, 2017 12:49
[2017-01-05] MEDS ORDERED: QUET1TAB7 PO (14:31)
[2017-01-05] MEDS ORDERED: QUET1TAB8 PO (14:31)
[2017-01-05] MEDS ORDERED: CLON.5 PO (14:31)
[2017-01-05] MEDS ORDERED: PANT40TA3 PO (14:31)
[2017-01-05] MEDS ORDERED: IMIT50TA PO (14:31)
[2017-01-05] MEDS ORDERED: AMLO5 PO (14:31)
[2017-01-05] MEDS ORDERED: CLON1 PO (14:31)
[2017-01-05] MEDS: clonazePAM 0.5 MG TAB PO SCH ×2 (14:45→21:10)
--- NOTE | 2017-01-05 15:32 | RADRPT ---
EXAM DATE/TIME: 01/05/2017 15:04 [place] COMPARISON: No previous studies available for comparison. INDICATIONS : Cough. Rule out TB. MEDICAL HISTORY : Hypertension. Seizures. Hepatitis C. SURGICAL HISTORY : None. ENCOUNTER: Initial ACUITY: 1 day PAIN SCORE: 0/10 LOCATION: Bilateral chest FINDINGS: PA and lateral views of the chest demonstrate the lungs to be symmetrically aerated without evidence of mass, infiltrate or effusion. The cardiomediastinal contours are unremarkable. Osseous structure s are intact. CONCLUSION: No acute disease. Arias Rivas MD on January 05, 2017 at 15:30 Board Certified Radiologist. This report was verified electronically.
[2017-01-05 18:06] VITALS: BP 113/62; PULSE 76; RESP 18; TEMP 97.6; O2SAT 99
[2017-01-05] MEDS: QUEtiapine FUMARATE 100 MG TAB PO SCH (21:10)
[2017-01-05] MEDS: SUMAtriptan SUCCINATE 50 MG TAB PO PRN (21:12)
[2017-01-06 05:42] VITALS: BP 109/69; PULSE 84; RESP 16; TEMP 97.7; O2SAT 98
[2017-01-06] MEDS: PANTOPRAZOLE SOD 40 MG DELAYED RELEASE TAB PO SCH (08:42)
[2017-01-06] MEDS: amLODIPine BESYLATE 5 MG TAB PO SCH (08:42)
[2017-01-06] MEDS: QUEtiapine FUMARATE 25 MG TAB PO SCH (08:42)
[2017-01-06] MEDS: clonazePAM 1 MG TAB PO SCH (08:42)
[2017-01-06] MEDS: ACETAMINOPHEN 325 MG TAB PO PRN (08:48)
[2017-01-06] MEDS: NICOTINE 21 MG/24 HR PATCH T-DERMAL SCH (09:00)
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
== END 2017-01-06 10:30 | DRG 885 ==
LOC: NEPD 05:43 → NEDA 11:33 → H260 12:25
PROVIDERS: ADMIT Psychiatry & Neurology Psychiatry; ATTEND Psychiatry & Neurology Psychiatry
DX: F31.30 Bipolar disorder, current episode depressed, mild or moderate severity, unspecified (principal); R45.851 Suicidal ideations; I10 Essential (primary) hypertension; F41.9 Anxiety disorder, unspecified; K21.9 Gastro-esophageal reflux disease without esophagitis; F10.10 Alcohol abuse, uncomplicated; Y90.0 Blood alcohol level of less than 20 mg/100 ml; G47.00 Insomnia, unspecified; F12.90 Cannabis use, unspecified, uncomplicated
CPT/HCPCS: 71020; 80048; 80061; 80307; 81001; 83036; 85025; 99284; Q0163

== ENCOUNTER 2017-10-13 10:44 | Emergency (ER) | payer MEDICAID, MEDICARE, OTHER ==
[~2017-10-13] VITALS: Ht 182.9 cm; Wt 100.0 kg
[~2017-10-13 10:44] MED LIST changes: -ARIP1TAB13 PO; +CLON0.5T PO; +CLON1 PO; +IMIT50TA PO; -PANT20 PO; +PANT40TA3 PO; +QUET1TAB7 PO; +QUET1TAB8 PO; -SERT50 PO; -TRAZ50TA78 PO
[2017-10-13 10:52] VITALS: BP 130/76; PULSE 71; RESP 18; TEMP 98; O2SAT 98
--- NOTE | 2017-10-13 12:00 | PD ---
HPI Chief Complaint: ENT Complaint Time Seen by Provider: 11:21 Travel History International Travel<30 days: No Contact w/Intl Traveler<30days: No Traveled to known affect area: No History of Present Illness HPI 67-year-old male presents to the emergency room for an assisted living facility for evaluation of possible ear infection. Patient was complaining of ear pain 3 weeks ago and placed on Cortisporin HC drops by his primary care physician. He used the drops for a week without any relief in symptoms. States he stopped it about 2 days ago. Patient's biggest complaint is decreased hearing; states it is only 60% of what it normally is. Denies any significant pain or drainage. Denies any fevers. PFSH Past Medical History Bipolar Disorder: Yes Anxiety: Yes Depression: Yes Cancer: No Cardiovascular Problems: Yes (HTN) Cerebrovascular Accident: No Diabetes: No Endocrine: No Genitourinary: No Headaches: Yes Hepatitis: Yes (HEPATITIS C) Hypertension: Yes Musculoskeletal: No Neurologic: No Psychiatric: Yes Reproductive: No Respiratory: No Migraines: No Seizures: No Past Surgical History Other Surgery: No Social History Alcohol Use: Yes (RARE) Tobacco Use: No Substance Use: Yes (marijuana) Allergies-Medications (Allergen,Severity, Reaction): Coded Allergies: No Known Allergies (Unverified Adverse Reaction, Unknown, 10/13/17) Reported Meds & Prescriptions Reported Meds & Active Scripts Active Imitrex (Sumatriptan Succinate) 50 Mg Tab 50 Mg PO DAILY PRN Quetiapine (Quetiapine Fumarate) 100 Mg Tab 100 Mg PO HS Quetiapine (Quetiapine Fumarate) 25 Mg Tab 50 Mg PO DAILY Pantoprazole (Pantoprazole Sodium) 40 Mg Tab 40 Mg PO DAILY Klonopin (Clonazepam) 0.5 Mg Tab 0.5 Mg PO DAILY@14,22 Klonopin (Clonazepam) 1 Mg Tab 1 Mg PO DAILY Norvasc (Amlodipine Besylate) 5 Mg Tab 5 Mg PO DAILY Reported Norvasc (Amlodipine Besylate) 5 Mg Tab 5 Mg PO DAILY Clonazepam 0.5 Mg Tab 0.5 Mg PO BID Review of Systems Except as stated in HPI: all other systems reviewed are Neg Physical Exam Narrative GENERAL: Well-nourished, well-developed male in no acute distress. Afebrile. Ambulatory. SKIN: Focused skin assessment warm/dry. HEAD: Normocephalic. EYES: No scleral icterus. No injection or drainage. NECK: Supple, trachea midline. No JVD or lymphadenopathy. CARDIOVASCULAR: Regular rate and rhythm without murmurs, gallops, or rubs. RESPIRATORY: Breath sounds equal bilaterally. No accessory muscle use. GASTROINTESTINAL: Abdomen soft, non-tender, nondistended. MUSCULOSKELETAL: No cyanosis, or edema. BACK: Nontender without obvious deformity. No CVA tenderness. Data Data Last Documented VS Vital Signs Date Time Temp Pulse Resp B/P (MAP) Pulse Ox O2 Delivery O2 Flow Rate FiO2 10/13/17 10:55 18 10/13/17 10:52 98.0 71 130/76 (94) 98 Orders Orders Ear Irrigation (10/13/17 11:26) Ed Discharge Order (10/13/17 12:08) [facility] Medical Decision Making Medical Screen Exam Complete: Yes Emergency Medical Condition: Yes Medical Record Reviewed: Yes Differential Diagnosis Cerumen impaction, otitis media, otitis externa Narrative Course 67-year-old male presents to the emergency room for evaluation of decreased hearing to the right ear. Patient states he got treated with Cortisporin HC 1 week ago for otitis externa, he finished 2 days ago. Reports no improvement in decreased hearing. Denies any significant pain or drainage. Physical exam reveals cerumen impaction of the right ear. No significant purulent drainage. Left ear is unremarkable. Ear irrigation ordered. There was a significant amount of cerumen removed. Tympanic membrane is unremarkable. No signs of infection. He reports improvement in hearing. Told to follow-up with primary care physician or return for worsening symptoms. He understands and agrees to plan. Diagnosis Primary Impression: Impacted cerumen of right ear Referrals: Primary Care Physician Additional Instructions: Rest and drink plenty of fluids. Tylenol for pain Follow-up with a primary care physician. Return to the emergency room for worsening symptoms. Disposition: 01 DISCHARGE HOME Condition: Stable Hallie Manning Oct 13, 2017 12:00
== END 2017-10-13 12:46 | disposition home or self-care (01) ==
LOC: NEPK 10:44
DX: H61.21 Impacted cerumen, right ear (principal); I10 Essential (primary) hypertension; F31.9 Bipolar disorder, unspecified; F41.9 Anxiety disorder, unspecified; Z86.19 Personal history of other infectious and parasitic diseases; Z79.899 Other long term (current) drug therapy
CPT/HCPCS: 69210

== ENCOUNTER 2017-12-12 08:56 | Emergency (ER) | payer MEDICARE, MEDICAID ==
[~2017-12-12] VITALS: Ht 182.9 cm; Wt 99.5 kg
[2017-12-12 08:59] VITALS: BP 123/57; PULSE 74; RESP 16; TEMP 97.6; O2SAT 98
--- NOTE | 2017-12-12 09:11 | PD ---
HPI Chief Complaint: Cold / Flu Symptoms Time Seen by Provider: 09:10 Travel History International Travel<30 days: No Contact w/Intl Traveler<30days: No Traveled to known affect area: No History of Present Illness HPI 67-year-old male came to the emergency room with complaints of cough, popping of his ears and chest tightness for past 10 days. Patient says for past 4-5 days he has noticed that he has been wheezing. Last night he was up all night wheezing and difficulty breathing. Today he is feeling better. Vital signs are stable. He does not have any known coronary artery disease and the symptoms have not happened in the past to him before although he does tend to get seasonal allergies. Patient lives in an assisted care living facility and has been taking all his medication like he supposed to be which is being administered to him. He does not appear to be in any significant distress. Denies of any chest pain. Patient does not require oxygen at home. He is not a smoker. No history of COPD. No history of fever or chills. Cough is mostly dry and nonproductive. [facility] Past Medical History Narrative Medical List of his past medical, surgical, social and family history is reviewed from the nursing note. Bipolar Disorder: Yes Anxiety: Yes Depression: Yes Cancer: No Cardiovascular Problems: Yes Cerebrovascular Accident: No Diabetes: No Endocrine: No Genitourinary: No Headaches: Yes Hepatitis: Yes (HEPATITIS C) Hypertension: Yes Musculoskeletal: No Neurologic: No Psychiatric: Yes Reproductive: No Respiratory: No Migraines: No Seizures: No Past Surgical History Other Surgery: No Social History Alcohol Use: Yes (RARE) Tobacco Use: No Substance Use: Yes (marijuana) Allergies-Medications (Allergen,Severity, Reaction): Coded Allergies: No Known Allergies (Unverified Adverse Reaction, Unknown, 12/12/17) Comments No known drug allergies. Reported Meds & Prescriptions Reported Meds & Active Scripts Active Nasonex Nasal [place] (Mometasone Furoate) 50 Mcg/Act Naspr 2 [place] EACH NARE DAILY Ventolin Hfa 18 GM Inh (Albuterol Sulfate) 90 Mcg/Act Aer 2 Puff INH Q6H PRN Zyrtec (Cetirizine HCl) 10 Mg Capsule 1 Tab PO ONCE 30 Days Imitrex (Sumatriptan Succinate) 50 Mg Tab 50 Mg PO DAILY PRN Quetiapine (Quetiapine Fumarate) 100 Mg Tab 100 Mg PO HS Quetiapine (Quetiapine Fumarate) 25 Mg Tab 50 Mg PO DAILY Pantoprazole (Pantoprazole Sodium) 40 Mg Tab 40 Mg PO DAILY Klonopin (Clonazepam) 0.5 Mg Tab 0.5 Mg PO DAILY@14,22 Klonopin (Clonazepam) 1 Mg Tab 1 Mg PO DAILY Norvasc (Amlodipine Besylate) 5 Mg Tab 5 Mg PO DAILY Reported Norvasc (Amlodipine Besylate) 5 Mg Tab 5 Mg PO DAILY Clonazepam 0.5 Mg Tab 0.5 Mg PO BID Narrative Medication List of his home medications reviewed from the nursing note. Review of Systems Except as stated in HPI: all other systems reviewed are Neg Respiratory: Positive: Cough, Wheezing Physical Exam Narrative GENERAL: Awake, alert, no obvious distress SKIN: Focused skin assessment warm/dry. HEAD: Atraumatic. Normocephalic. EYES: Pupils equal and round. No scleral icterus. No injection or drainage. ENT: No nasal bleeding or discharge. Mucous membranes pink and moist. Left TM is dull and fluid behind the ear drum NECK: Trachea midline. No JVD. CARDIOVASCULAR: Regular rate and rhythm. No murmur appreciated. RESPIRATORY: No accessory muscle use. Clear to auscultation. Breath sounds equal bilaterally. GASTROINTESTINAL: Abdomen soft, non-tender, nondistended. Hepatic and splenic margins not palpable. MUSCULOSKELETAL: No obvious deformities. No clubbing. No cyanosis. No edema. NEUROLOGICAL: Awake and alert. No obvious cranial nerve deficits. Motor grossly within normal limits. Normal speech. PSYCHIATRIC: Appropriate mood and affect; insight and judgment normal. Data Data Last Documented VS Orders Orders Complete Blood Count With Diff (12/12/17 09:19) Basic Metabolic Panel (Bmp) (12/12/17 09:19) B-Type Natriuretic Peptide (12/12/17 09:19) Troponin I (12/12/17 09:19) Iv Access Insert/Monitor (12/12/17 09:19) Electrocardiogram (12/12/17 09:19) Ecg Monitoring (12/12/17 09:19) Oximetry (12/12/17 09:19) Oxygen Administration (12/12/17 09:19) Chest, Pa & Lat (12/12/17 09:19) Sodium Chloride 0.9% Flush (Ns Flush) (12/12/17 09:30) Ed Discharge Order (12/12/17 10:28) Labs Laboratory Tests Test 12/12/17 09:34 White Blood Count 7.8 TH/MM3 Red Blood Count 4.78 MIL/MM3 Hemoglobin 14.6 GM/DL Hematocrit 41.8 % Mean Corpuscular Volume 87.4 FL Mean Corpuscular Hemoglobin 30.6 PG Mean Corpuscular Hemoglobin Concent 35.0 % Red Cell Distribution Width 14.2 % Platelet Count 257 TH/MM3 Mean Platelet Volume 7.8 FL Neutrophils (%) (Auto) 68.8 % Lymphocytes (%) (Auto) 19.8 % Monocytes (%) (Auto) 7.5 % Eosinophils (%) (Auto) 2.8 % Basophils (%) (Auto) 1.1 % Neutrophils # (Auto) 5.4 TH/MM3 Lymphocytes # (Auto) 1.5 TH/MM3 Monocytes # (Auto) 0.6 TH/MM3 Eosinophils # (Auto) 0.2 TH/MM3 Basophils # (Auto) 0.1 TH/MM3 CBC Comment DIFF FINAL Differential Comment Blood Urea Nitrogen 14 MG/DL Creatinine 1.47 MG/DL Random Glucose 95 MG/DL Calcium Level 8.5 MG/DL Sodium Level 138 MEQ/L Potassium Level 3.9 MEQ/L Chloride Level 108 MEQ/L Carbon Dioxide Level 22.0 MEQ/L Anion Gap 8 MEQ/L Estimat Glomerular Filtration Rate 48 ML/MIN Troponin I LESS THAN 0.02 NG/ML B-Type Natriuretic Peptide 22 PG/ML MDM Medical Decision Making Medical Screen Exam Complete: Yes Emergency Medical Condition: Yes Medical Record Reviewed: Yes Interpretation(s) Twelve-lead EKG was reviewed by me. Normal sinus rhythm, normal axis, nonspecific ST-T wave changes, first-degree AV block. Heart rate of 69 bpm. Differential Diagnosis CHF, bronchitis, reactive airway disease, seasonal allergy Narrative Course 10:40 AM blood test results are back and within acceptable limits. Chest x-ray is negative. I am comfortable discharging the patient home with the diagnosis of seasonal allergy and prescription for H2 yashira, bronchodilator inhaler and steroid nasal sprays. I have explained all this to the patient and he understands. Procedures EKG Prior to Arrival: No Diagnosis Primary Impression: URI (upper respiratory infection) Qualified Codes: J06.9 - Acute upper respiratory infection, unspecified Additional Impressions: Reactive airway disease Qualified Codes: J45.21 - Mild intermittent asthma with (acute) exacerbation Seasonal allergies Qualified Codes: J30.2 - Other seasonal allergic rhinitis Referrals: Primary Care Physician 3 days Additional Instructions: Take the medication as per the prescription direction. Take the inhaler 2 puffs every 6 hours as needed for wheezing. Follow-up with your primary care. Return to the ER if condition worsens any other new concerns. Med/Other Pt SpecificInfo: Prescription(s) given Scripts Mometasone Nasal [place] (Nasonex Nasal [place]) 50 Mcg/Act Naspr 2 SPRAY EACH NARE DAILY for Allergy Management, #1 BOTTLE 0 Refills Prov: Clem Gan MD 12/12/17 Albuterol 18 GM Inh (Ventolin Hfa 18 GM Inh) 90 Mcg/Act Aer 2 PUFF INH Q6H Y for SHORTNESS OF BREATH, #1 INHALER 0 Refills Prov: Clem Gan MD 12/12/17 Cetirizine HCl (Zyrtec) 10 Mg Capsule 1 TAB PO ONCE for 30 Days Prov: Clem Gan MD 12/12/17 Disposition: 01 DISCHARGE HOME Condition: Stable Clem Gan MD Dec 12, 2017 09:11
[2017-12-12] MEDS ORDERED: SODIUM CHLORIDE 0.9% FLUSH 10 ML FLUSH IVF PRN (09:30)
[2017-12-12 09:38] VITALS: O2SAT 98
[2017-12-12 09:43] LABS: AUTOMATED NEUTROPHIL # 5.4 TH/MM3 (1.8-7.7); BASOPHIL # 0.1 TH/MM3 (0-0.2); BASOPHIL % 1.1 % (0.0-2.0); EOSINOPHIL # 0.2 TH/MM3 (0-0.4); EOSINOPHIL % 2.8 % (0.0-4.0); HEMATOCRIT 41.8 % (39.0-51.0); HEMOGLOBIN 14.6 GM/DL (13.0-17.0); LYMPH % 19.8 % (9.0-44.0); LYMPHOCYTE # 1.5 TH/MM3 (1.0-4.8); MEAN CELL VOLUME 87.4 FL (80.0-100.0); MEAN CORPUSCULAR HEMOGLOBIN 30.6 PG (27.0-34.0); MEAN PLATELET VOLUME 7.8 FL (7.0-11.0); MONO % 7.5 % (0.0-8.0); MONOCYTE # 0.6 TH/MM3 (0-0.9); NEUT % 68.8 % (16.0-70.0); PLATELET COUNT 257 TH/MM3 (150-450); RED BLOOD COUNT 4.78 MIL/MM3 (4.50-5.90); RED CELL DISTRIBUTION WIDTH 14.2 % (11.6-17.2); WHITE BLOOD COUNT 7.8 TH/MM3 (4.0-11.0)
--- NOTE | 2017-12-12 10:00 | RADRPT ---
EXAM DATE/TIME: 12/12/2017 09:45 [facility] COMPARISON: CHEST PA & LAT, January 05, 2017, 15:04. INDICATIONS : Shortness of breath. MEDICAL HISTORY : Hypertension. Hepatitis C. Seizures. SURGICAL HISTORY : None. ENCOUNTER: Initial ACUITY: 1 week PAIN SCORE: 0/10 LOCATION: Bilateral chest FINDINGS: PA and lateral views of the chest demonstrate the lungs to be symmetrically aerated without evidence of mass, infiltrate or effusion. The cardiomediastinal contours are unremarkable. Osseous structure s are intact. CONCLUSION: No acute cardiopulmonary disease. Juan Antonio Velarde MD on December 12, 2017 at 9:57 Board Certified Radiologist. This report was verified electronically.
[2017-12-12 10:01] LABS: BLOOD UREA NITROGEN 14 MG/DL (7-18); CALCIUM 8.5 MG/DL (8.5-10.1); CHLORIDE 108 MEQ/L (98-107); CREATININE 1.47 MG/DL (0.60-1.30); GLOMERULAR FILTRATION RATE 48 ML/MIN (>89); GLUCOSE,RANDOM 95 MG/DL (74-106); SODIUM (NA) 138 MEQ/L (136-145)
[2017-12-12 10:06] LABS: TROPONIN I LESS THAN 0.02 NG/ML (0.02-0.05)
[2017-12-12] MEDS ORDERED: VENTAER INH (10:31)
[2017-12-12] MEDS ORDERED: MOME17I EACH NARE (10:31)
[2017-12-12] MEDS ORDERED: CETI10CA3 PO (10:31)
[2017-12-12 10:44] VITALS: BP 129/87
--- NOTE | 2017-12-12 20:40 | EKG ---
Date Performed: 12/12/2017 Time Performed: 09:27:46 PTAGE: 67 years EKG: Sinus rhythm WITH FIRST DEGREE AV BLOCK ABNORMAL ECG PREVIOUS TRACING : 03/04/2016 20.44 DOCTOR: Arnulfo Tejada Interpretating Date/Time 12/12/2017 20:38:29
== END 2017-12-12 10:46 | disposition home or self-care (01) ==
LOC: NEPD 08:56
DX: J06.9 Acute upper respiratory infection, unspecified (principal); J45.21 Mild intermittent asthma with (acute) exacerbation; J30.2 Other seasonal allergic rhinitis; F12.90 Cannabis use, unspecified, uncomplicated; I10 Essential (primary) hypertension; R06.02 Shortness of breath
CPT/HCPCS: 71046; 80048; 83880; 84484; 85025; 93005; 99285